=== PATIENT | male | born 1930 | race Caucasian/White ===

== ENCOUNTER 2016-11-22 09:41 | Observation (INO) | payer MEDICARE, OTHER ==
[~2016-11-22] VITALS: Ht 170.2 cm; Wt 65.0 kg
[2016-11-22] MEDS ORDERED: SOD CHLORIDE 0.9% 500 ML IV STA (09:48)
[2016-11-22] MEDS ORDERED: DILTIAZEM 25 MG INJ IV ONE ×2 (10:00→10:30)
[2016-11-22 10:15] LABS: ADD SCAN DIFF NO
[2016-11-22 10:17] LABS: BASOPHILS % 0.2 % (0.0-2.0); EOSINOPHILS % 0.4 % (0.0-7.0); HEMATOCRIT 39.5 % (42.0-52.0); HEMOGLOBIN 13.7 g/dl (14.0-18.0); LYMPHOCYTES # 1.2 10^3/ul (0.8-2.9); LYMPHOCYTES % 25.3 % (15.0-51.0); MEAN CORPUSCULAR HEMOGLOBIN 31.6 pg (29.0-33.0); MEAN CORPUSCULAR HGB CONC 34.7 g/dl (32.0-37.0); MONOCYTE # 0.5 10^3/ul (0.3-0.9); MONOCYTES % 10.1 % (0.0-11.0); NEUTROPHIL # 3.1 10^3/ul (1.6-7.5); NEUTROPHILS % 62.8 % (39.0-77.0); PLATELET COUNT 118 10^3/UL (140-415); RED BLOOD COUNT 4.34 10^6/ul (4.70-6.10); RED CELL DISTRIBUTION WIDTH 13.3 % (11.5-14.5); WHITE BLOOD COUNT 4.9 10^3/ul (4.8-10.8)
--- NOTE | 2016-11-22 10:18 | RADRPT ---
PROCEDURE: XR Chest. CLINICAL INDICATION: Chest pain. TECHNIQUE: Single frontal view. COMPARISON: None. FINDINGS: There is mild elevation of the left hemidiaphragm. The lungs are clear. The heart size is normal. There is no pleural effusion. There is no pneumothorax. IMPRESSION: 1. Mild elevation of the left hemidiaphragm. 2. Otherwise normal chest x-ray. RPTAT: QQ .Luca Blanc MD, MD Date Time Electronically viewed and signed by .Luca Blanc MD, on 11/22/2016 10:18 .R/
[2016-11-22 10:29] LABS: CREATININE 1.25 mg/dl (0.61-1.24); INR 1.22; PROTIME 15.5 Sec (12.2-14.2); PT RATIO 1.2
[2016-11-22 10:30] LABS: PARTIAL THROMBOPLASTIN TIME 32.4 Sec (25.0-35.0)
[2016-11-22 10:41] LABS: TROPONIN-I 0.02 ng/ml (0.00-0.12)
[2016-11-22] MEDS ORDERED: ACETAMINOPHEN 325 MG TAB PO PRN ×2 (11:30→12:00)
[2016-11-22] MEDS ORDERED: ONDANSETRON 4 MG INJ IV PRN ×2 (11:30→12:00)
--- NOTE | 2016-11-22 11:31 | ERA ---
ER Documentation Chief Complaint Date/Time DATE: 11/22/16 TIME: 11:29 Chief Complaint new onset AFib coming from pmd c/o fast heart beat HPI This is an 86-year-old male who presents the emergency room for evaluation of palpitations, generalized weakness, dizziness and mild shortness of breath. The patient states that this started approximately 48 hours ago. The patient was seen at the health clinic and was evaluated and referred to the emergency room for irregular heart rate. The patient denies having any previous history of an irregular heart rate in the past. He does state that he is on blood pressure medication, Ativan, and high cholesterol medication. ROS All systems reviewed and are negative except as per history of present illness. PMhx/Soc Hx Cardiac Disorders: Yes (htn, afib) Hx Psychiatric Problems: No Hx Alcohol Use: No Hx Substance Use: No Hx Tobacco Use: No Smoking Status: Never smoker Physical Exam Vitals Vital Signs Date Time Temp Pulse Resp B/P Pulse Ox O2 Delivery O2 Flow Rate FiO2 11/22/16 10:06 98.0 88 18 134/83 99 Room Air 11/22/16 10:06 Nasal Cannula 11/22/16 09:56 97.8 155 20 166/97 99 Physical Exam INITIAL VITAL SIGNS: Reviewed by me GENERAL: The patient is well developed and appropriate for usual state of health in no apparent distress HEENT: Pupils equal, round, and reactive to light. EOMI. There is no scleral icterus. NECK: C-spine is soft and supple, there is no meningismus. There is no cervical lymphadenopathy. LUNGS: Clear to auscultation bilaterally. There are no rales, wheezes or rhonchi. HEART: Irregularly irregular rhythm, no murmurs, clicks, rubs or gallops. ABDOMEN: Soft, non-tender, non-distended. There are bowel sounds in all four quadrants. No rebound or guarding. EXTREMITIES: There is no peripheral cyanosis or edema. No focal swelling or erythema. NEUROLOGICAL: The patient moves all four extremities with 5/5 strength. Cranial nerves II - XII are intact. Normal gait. Alert and oriented SKIN: There is no apparent rash or petechiae. HEME/LYMPHATIC: There is no evidence of excessive bruising or lymphedema. PSYCHIATRIC: The patient does not appear anxious or depressed. Result Diagram: 11/22/16 1002 11/22/16 1002 Results 24 hrs Laboratory Tests Test 11/22/16 10:02 White Blood Count 4.910^3/ul Red Blood Count 4.3410^6/ul Hemoglobin 13.7g/dl Hematocrit 39.5% Mean Corpuscular Volume 91.0fl Mean Corpuscular Hemoglobin 31.6pg Mean Corpuscular Hemoglobin Concent 34.7g/dl Red Cell Distribution Width 13.3% Platelet Count 08148^3/UL Mean Platelet Volume 10.0fl Neutrophils % 62.8% Lymphocytes % 25.3% Monocytes % 10.1% Eosinophils % 0.4% Basophils % 0.2% Nucleated Red Blood Cells % 0.0/100WBC Neutrophils # 3.110^3/ul Lymphocytes # 1.210^3/ul Monocytes # 0.510^3/ul Eosinophils # 0.010^3/ul Basophils # 0.010^3/ul Nucleated Red Blood Cells # 0.010^3/ul Prothrombin Time 15.5Sec Prothrombin Time Ratio 1.2 INR International Normalized Ratio 1.22 Activated Partial Thromboplast Time 32.4Sec Sodium Level 144mmol/L Potassium Level 4.0mmol/L Chloride Level 109mmol/L Carbon Dioxide Level 21mmol/L Anion Gap 18 Blood Urea Nitrogen 20mg/dl Creatinine 1.25mg/dl Glucose Level 131mg/dl Calcium Level 9.0mg/dl Troponin I 0.020ng/ml Current Medications Medications (Trade) Dose Ordered Sig/Eduardo Route PRN Reason Start Time Stop Time Status Last Admin Dose Admin Sodium Chloride (NS) 500 ml @ 500 mls/hr Q1H STAT IV 11/22/16 09:48 11/22/16 10:47 DC 11/22/16 09:53 Diltiazem HCl (Cardizem Iv) 10 mg ONCE ONCE IV 11/22/16 10:00 11/22/16 10:01 DC 11/22/16 09:55 Diltiazem HCl (Cardizem Iv) 10 mg ONCE ONCE IV 11/22/16 10:30 11/22/16 10:31 DC 11/22/16 10:05 Ondansetron HCl (Zofran Inj) 4 mg ER BRIDGE PRN IV NAUSEA AND/OR VOMITING 11/22/16 11:30 11/23/16 11:29 Acetaminophen (Tylenol Tab) 650 mg ER BRIDGE PRN PO MILD PAIN/FEVER 11/22/16 11:30 11/23/16 11:29 Procedures/MDM EKG: #1 Rate/Rhythm: Atrial fibrillation QRS, ST, T-waves: [No changes consistent w/ acute ischemia] Impression: Atrial fibrillation with rapid ventricular response EKG: #2 Rate/Rhythm: Atrial fibrillation QRS, ST, T-waves: [No changes consistent w/ acute ischemia] Impression: Atrial fibrillation with rapid ventricular response EKG: Rate/Rhythm: [Normal Sinus Rhythm] QRS, ST, T-waves: [No changes consistent w/ acute ischemia] Impression: [No evidence of ischemia or arrhythmia] Chest X-ray 1V Interpreted by me: Soft Tissue: No acute abnormalities Bones: No acute abnormalities Mediastinum/Cardiac Silhouette/Lungs: [No acute abnormalities] This 86-year-old male presents to the emergency room for evaluation of heart palpitations. When I evaluated this patient he had a heart rate of 136 and was in atrial fibrillation with rapid ventricular response which was confirmed by EKG. This patient does not have a previous history of atrial fibrillation. I was unsure whether this patient's symptoms for greater than 48 hours or not so I did not electrically cardiovert this patient. The patient was given 10 mg of Cardizem with mild relief of his tachydysrhythmia, however he continued to have a heart rate of 120 bpm. The patient was subsequently given another 10 mg of Cardizem with rate control. His blood pressure is 132/74 and heart rate is now 88 bpm. His palpitations and feeling of uncomfortableness has subsided. Given this patient's new onset of atrial fibrillation this patient will be placed in for admission at this time under the care of Dr. Walden who would like this patient observation on the telemetry floor. Cardiac Critical Care: Excluding all billable procedures Time: 37 minutes Treatments/Evaluations: Close monitoring for dangerous arrhythmia and cardiovascular collapse, while treating with advance cardiac medications and techniques. Departure Diagnosis: Primary Impression: Atrial fibrillation with RVR Additional Impressions: Normocytic anemia Thrombocytopenia Renal insufficiency Condition: Stable ADONISMAKENZIE AMORKOBI Nov 22, 2016 11:31
[2016-11-22] MEDS ORDERED: BISACODYL 10 MG SUPP PR PRN (12:00)
[2016-11-22] MEDS ORDERED: DOCUSATE SODIUM 100 MG CAP PO PRN (12:00)
[2016-11-22] MEDS ORDERED: morphine 2 MG INJ IV PRN (12:00)
[2016-11-22] MEDS ORDERED: HYDROCODONE/APAP (5/325) TAB PO PRN ×2 (12:00)
[2016-11-22] MEDS ORDERED: NACL 0.9% 3 ML SYG IV SCH (12:00)
[2016-11-22] MEDS ORDERED: LORAZEPAM 2 MG INJ IV PRN (12:00)
[2016-11-22] MEDS ORDERED: MAGNESIUM HYDROXIDE 30ML CUP PO PRN (12:00)
[2016-11-22] MEDS ORDERED: FINA5TAB4 PO (12:08)
[2016-11-22] MEDS ORDERED: CRES10 PO (12:09)
[2016-11-22] MEDS ORDERED: CLON-379 PO (12:14)
[2016-11-22] MEDS ORDERED: DEXL60CA2 PO (12:15)
[2016-11-22] MEDS ORDERED: LORA0.5T PO (12:17)
[2016-11-22] MEDS ORDERED: TRAZ50TA18 PO (12:17)
[2016-11-22] MEDS ORDERED: KENC1 TOP (12:18)
[2016-11-22] MEDS ORDERED: MECL-77 PO (12:19)
--- NOTE | 2016-11-22 13:10 | RADRPT ---
Echocardiogram Report Patient Name: JAZMINE ESPINOZA Gender: Male Date: 1930 Study Date: 22-Nov-2016 Gift Consultant: Samson Castillo [facility] Location: [facility] Ref. Physician: THIERNO MCGOWAN Quality: Good Procedures: Transthoracic echocardiogram with complete 2D, M-Mode, and doppler examination. Indications: Atrial Fibrillation. 2D/M Mode Doppler Measurement Value Normal Ranges Measurement Value Normal Ranges LVIDd 2D 4.3 3.5 - 5.6 cm AV Peak Solo 1.3 m/sec LVIDs 2D 2.9 2.1 - 4.1 cm AV Peak PG 7.0 mmHg FS 2D 34.0 % AI Peak PG 59.0 mmHg LVPWd 2D 1.2 0.6 - 1.1 cm AI Peak Solo 3.8 m/sec IVSd 2D 1.2 0.6 - 1.1 cm AI PHT 935.0 msec IVS/LVPW 2D 1.0 LVOT Peak Solo 1.0 m/sec AoR Diam 2D 3.3 2.0 - 3.7 cm LVOT Peak PG 4.0 mmHg LA/Ao 2D 1 0 - 1 MV E Peak Solo 0.6 m/sec EDV 2D 82.3 cm3 MV A Peak Solo 0.9 m/sec ESV 2D 23.6 cm3 MV E/A 0.7 LA Dimen 2D 2.7 2.3 - 4.0 cm MV Decel Time 176 msec MV E/A 0.7 Findings Left Ventricle: Normal left ventricular systolic function. Normal left ventricular cavity size. Mild concentric left ventricular hypertrophy. Ejection fraction is visually estimated at 60 %. Tissue Doppler/Mitral Doppler indices are consistent with impaired relaxation (Stage I diastolic dysfunction). Right Ventricle: Normal right ventricular size. Normal right ventricular systolic function. Left Atrium: The left atrium is normal in size. Right Atrium: The right atrium is normal in size. Mitral Valve: Mitral valve leaflets appear mildly thickened. Mild mitral annular calcification. Mild mitral valve regurgitation. Aortic Valve: No hemodynamically significant aortic stenosis by doppler. Aortic cusps appear mildly calcified. Mild aortic valve regurgitation. Tricuspid Valve: Normal appearance and function of the tricuspid valve with trace physiologic regurgitation. Pulmonic Valve: Pulmonic valve not well visualized. Pericardium: Normal pericardium with no significant pericardial effusion. Aorta: Normal aortic root. IVC: Normal size and normal respiratory collapse consistent with normal right atrial pressure. Conclusions 1.Normal left ventricular systolic function. Normal left ventricular cavity size. Mild concentric left ventricular hypertrophy. Ejection fraction is visually estimated at 60 %. Tissue Doppler/Mitral Doppler indices are consistent with impaired relaxation (Stage I diastolic dysfunction). 2.Normal right ventricular size. Normal right ventricular systolic function. 3.The left atrium is normal in size. 4.The right atrium is normal in size. 5.Mild mitral valve regurgitation. 6.No hemodynamically significant aortic stenosis by doppler. Mild aortic valve regurgitation. 7.Normal pericardium with no significant pericardial effusion. Electronically Signed By: Thierno Mcgowan 22-Nov-2016 13:09:42 -0700 Patient Name: JAZMINE ESPINOZA Study Date: 22-Nov-2016 [id number]
[2016-11-22] MEDS: SOD CHLORIDE 0.9% 1,000 ML IV SCH ×2 (13:57→21:39)
[2016-11-22 13:58] LABS: THYROID STIMULATING HORMONE 1.14 MIU/L (0.465-4.680)
[2016-11-22] MEDS ORDERED: HEPARIN 5,000 UNIT/0.5 ML SYG SC SCH (14:00)
--- NOTE | 2016-11-22 15:29 | CONS ---
Date/Time of Note Date/Time of Note DATE: 11/22/16 TIME: 15:23 Assessment/Plan Assessment/Plan Additional Assessment/Plan Atrial fibrillation rapid ventricular rates, currently sinus Preserved ejection fraction Mitral regurgitation Hypertension Abnormal renal function -Patient with evidence of paroxysmal atrial fibrillation and converted to sinus rhythm with IV Cardizem. Would start p.o. Cardizem. Given the increased risk of thromboembolic events in the setting of atrial fibrillation and patient risk factors, would recommend initiation of anticoagulation. The benefits and risks were discussed with the patient in detail including the risk of life- threatening bleeding. He understands the risks and agrees to proceed. Patient has been started on Eliquis. Given patient with hypertension and mitral regurgitation, patient would benefit from afterload reduction with ideally VERONIKA inhibitor. Would hold off on initiation of VERONIKA inhibitor at the current time given abnormal creatinine. Consultation Date/Type/Reason Admit Date/Time Type of Consultation: cv Reason for Consultation Atrial fibrillation Hx of Present Illness This is an 86-year-old male with past medical history of hypertension, dyslipidemia who presents with fatigue and intermittent palpitations. Patient has been having symptoms of fatigue and palpitations off and on over the past few weeks. He denies any chest pain, dizziness, lightheadedness. He went to his primary care's office and was found to be in atrial fibrillation with rapid ventricular rates and sent to the emergency room. Patient was given IV Cardizem and converted to sinus rhythm. He is currently feeling better. He denies exertional shortness of breath as well. He denies any fevers or chills. 12 point review of systems was performed with all pertinent positives and negatives mentioned above and all else is negative Past Medical History Medical History: high cholesterol, hypertension Family History Significant Family History: no pertinent family hx Social History Alcohol Use: rarely Smoking Status: Never smoker Drug Use: none Exam/Review of Systems Vital Signs Vitals Vital Signs Date Time Temp Pulse Resp B/P Pulse Ox O2 Delivery O2 Flow Rate FiO2 11/22/16 13:43 84 18 157/97 99 Room Air 11/22/16 10:06 98.0 Exam No apparent distress Constitutional: alert, oriented Head: normocephalic Neck: supple Respiratory: clear to auscultation, normal air movement Cardiovascular: other (S1-S2 heard), regular rate and rhythm, systolic murmur Gastrointestinal: bowel sounds, non-tender, other (No guarding), soft Extremities: other (No edema or cyanosis) Results Result Diagram: 11/22/16 1002 11/22/16 1002 Results 24 hrs Laboratory Tests Test 11/22/16 10:02 11/22/16 12:23 White Blood Count 4.9 Red Blood Count 4.34 L Hemoglobin 13.7 L Hematocrit 39.5 L Mean Corpuscular Volume 91.0 Mean Corpuscular Hemoglobin 31.6 Mean Corpuscular Hemoglobin Concent 34.7 Red Cell Distribution Width 13.3 Platelet Count 118 L Mean Platelet Volume 10.0 Neutrophils % 62.8 Lymphocytes % 25.3 Monocytes % 10.1 Eosinophils % 0.4 Basophils % 0.2 Nucleated Red Blood Cells % 0.0 Neutrophils # 3.1 Lymphocytes # 1.2 Monocytes # 0.5 Eosinophils # 0.0 Basophils # 0.0 Nucleated Red Blood Cells # 0.0 Prothrombin Time 15.5 H Prothrombin Time Ratio 1.2 INR International Normalized Ratio 1.22 Activated Partial Thromboplast Time 32.4 Sodium Level 144 Potassium Level 4.0 Chloride Level 109 Carbon Dioxide Level 21 Anion Gap 18 H Blood Urea Nitrogen 20 Creatinine 1.25 H Glucose Level 131 Calcium Level 9.0 Troponin I 0.020 Magnesium Level 2.0 Thyroid Stimulating Hormone (TSH) 1.140 Free Thyroxine 0.78 L Medications Medications Current Medications Sodium Chloride (NS) 1,000 ml @ 100 mls/hr Q10H IV Last administered on t 13:57; Admin Dose 100 MLS/HR; Start 11/22/16 at 11:39 Lorazepam (Ativan) 0.5 mg Q6H PRN IV ANXIETY; Start 11/22/16 at 12:00 Ondansetron HCl (Zofran Inj) 4 mg Q6H PRN IV NAUSEA AND/OR VOMITING; Start at 12:00 Aspirin (Aspirin) 81 mg DAILY PO ; Start 11/23/16 at 09:00 Acetaminophen (Tylenol Tab) 650 mg Q6H PRN PO PAIN LEVEL 1-3 OR FEVER; Start at 12:00 Acetaminophen/ Hydrocodone Bitart (Bradley (5/325)) 1 tab Q6H PRN PO PAIN LEVEL 4 -6; Start 11/22/16 at 12:00 Acetaminophen/ Hydrocodone Bitart (Bradley (5/325)) 2 tab Q6H PRN PO PAIN LEVEL 7 -10; Start 11/22/16 at 12:00 Morphine Sulfate (morphine) 2 mg Q4H PRN IV PAIN LEVEL 7-10; Start 11/22/16 at 12:00 Docusate Sodium (Colace) 100 mg Q12H PRN PO CONSTIPATION; Start 11/22/16 at 12: 00 Magnesium Hydroxide (Milk Of Mag) 30 ml DAILY PRN PO CONSTIPATION; Start at 12:00 Bisacodyl (Dulcolax Supp) 10 mg DAILY PRN [place] CONSTIPATION; Start 11/22/16 at 12 :00 Pantoprazole (Protonix Tab) 40 mg DAILY@06 PO ; Start 11/23/16 at 06:00 Heparin Sodium (Porcine) (Heparin (5000 Units/0.5 ml)) 5,000 unit Q8 SC Last administered on 11/22/16t 13:54; Admin Dose 5,000 UNIT; Start 11/22/16 at 14:00 Procedures Procedures Initial ECG with atrial fibrillation with rapid ventricular rates, no significant ischemic STT wave abnormalities Repeat ECG with sinus rhythm, normal QRS duration, no significant ischemic STT wave abnormalities Thierno Mcgowan DO Nov 22, 2016 15:29
[2016-11-22 16:06] LABS: CREATINE KINASE 24 IU/L (23-200)
[2016-11-22 16:32] LABS: CK-MB < 0.22 ng/ml (0.0-2.4); TROPONIN-I < 0.012 ng/ml (0.00-0.12)
[2016-11-22] MEDS: DILTIAZEM (CD) 180 MG CAP PO SCH (16:42)
[2016-11-22] MEDS ORDERED: MECLIZINE 25 MG TAB PO PRN (18:00)
[2016-11-22] MEDS ORDERED: LORAZEPAM 0.5 MG TAB PO PRN (18:00)
--- NOTE | 2016-11-22 18:40 | HP ---
DATE OF ADMISSION: 11/22/2016 ADMITTING PHYSICIAN: Rj Walden MD CONSULTING ON THIS ADMISSION: Thierno Mcgowan MD from cardiology. CHIEF COMPLAINT ON ADMISSION: Palpitations and generalized weakness. HISTORY OF PRESENT ILLNESS: This is an 86-year-old male with history of hypertension, hyperlipidemi a and benign prostatic hypertrophy, recently diagnosed also with possible vertigo has been on mecliz ine, who presented to the emergency department with complaint of palpitations, generalized weakness and dizziness along with some mild shortness of breath. The patient reports that he was having thos e symptoms for the past 48 hours. He actually went to urgent care [facility] where he was found to be in atrial fibrillation with no previous history. Therefore, he was redirected to the emergency depart ment. In the emergency department, he was found to be in atrial fibrillation with heart rate in the 150s to 160s. After 2 doses of Cardizem 10 mg IV, his heart rate became controlled in 80s. He act ually converted to sinus rhythm. His symptoms resolved along with conversion to sinus rhythm. He i s feeling well currently. No shortness of breath. He denies any chest pains, nausea or vomiting. He denies any dizziness. He has been admitted to telemetry observation overnight. He has been seen by cardiology, started on Cardizem-CD, but also Eliquis for stroke prophylaxis. ALLERGIES: NO KNOWN ALLERGIES. PAST MEDICAL HISTORY: 1. Hypertension. Of note, the patient has been on clonidine as an outpatient for blood pressure co ntrol. 2. Hyperlipidemia. 3. Benign prostatic hypertrophy. 4. Possibly benign positional vertigo. PAST SURGICAL HISTORY: None. SOCIAL HISTORY: The patient denies any history of alcohol or tobacco use. He lives with his son an d may be exposed to secondhand smoking as the son is a smoker. OUTPATIENT MEDICATIONS: 1. Clonidine 0.1 mg p.o. daily, take 3 tablets by mouth daily. 2. Crestor 10 mg p.o. at bedtime. 3. Lorazepam 0.25 mg p.o. at bedtime p.r.n. insomnia. 4. Trazodone 25 mg p.o. daily. 5. Dexilant 60 mg p.o. daily. 6. Meclizine 25 mg p.o. daily p.r.n. dizziness. 7. Finasteride 5 mg p.o. daily. PHYSICAL EXAMINATION: VITAL SIGNS: Temperature is 98.0, heart rate of 84, sinus rhythm now, respiratory rate of 18, blood pressure 157/97. The patient is saturating 99% on room air. He is lying in a stretcher, but other parekh stable. GENERAL: He is alert and oriented x4. He is in no acute distress. No chest pain currently, he is in sinus rhythm. HEENT: Pupils are equally round and reactive to light. Extraocular muscles are intact. Anicteric sclerae. NECK: No JVD, no thyromegaly. HEART: Regular rate and rhythm. No murmur, rubs, or gallops. LUNGS: Clear to auscultation bilaterally. ABDOMEN: Soft, nontender, nondistended. Bowel sounds are present. EXTREMITIES: No edema, clubbing or cyanosis currently. NEUROLOGIC: Grossly intact. LABORATORY DATA: White blood cell count is 4.9, hemoglobin 13.7, hematocrit 39.5, platelet count of 118. Chemistry with a sodium of 144, potassium 4.0, chloride 109, bicarbonate 21, BUN 20, creatini ne 1.25, glucose 131, calcium 9.0, magnesium 2.0, troponin 0.020, TSH 1.14, free T4 0.78. Second se t of troponin negative with troponin less than 0.012. INR 1.22, PT 15.5, PTT 32.4. EKG currently is in sinus rhythm, no acute ST or T-wave abnormalities. EKG on arrival is reviewed. The patient was in atrial fibrillation at that time. RADIOLOGICAL DATA: Chest x-ray shows no pleural effusion, no pneumothorax, mild elevation of the le ft hemidiaphragm, otherwise clear. ASSESSMENT AND PLAN: This is an 86-year-old male with: 1. Episode of atrial fibrillation with rapid ventricular rate, did convert to sinus rhythm after Ca rdizem. He most likely has been in it for the past couple of days based on these symptoms. I appre ciate recommendations from Dr. Mcgowan from cardiology. The patient is started on Cardizem-CD 180 mg p.o. daily. Also has been started on Eliquis for stroke prophylaxis. He will be monitored overnig ht with discharge planning for the morning. His echocardiogram showed a preserved ejection fraction . 2. Hypertension. He is now on Cardizem-CD. I did add hydralazine p.r.n. IV in the morning if his creatinine seems to have recovered back to normal. We will start him on VERONIKA inhibitors or ARB as th e patient is found to have mitral regurgitation on echocardiogram. 3. Acute kidney injury versus chronic kidney disease. Will repeat his BMP in the morning in order to follow up his renal function. For now, he has good urine output. 4. Benign prostatic hypertrophy. Resume finasteride. 5. Gastroesophageal reflux disease. Continue proton pump inhibitors. 6. Hyperlipidemia. We will check a fasting lipid panel in the morning and then continue his Cresto r at the time of discharge. 7. Mild mitral valve regurgitation on echocardiogram. Again appreciate recommendations from cardio logy regarding antihypertensive. The patient could use an VERONIKA inhibitor depending on his renal func tion. 8. Prophylaxis. The patient already on Eliquis at this time and Protonix for DVT prophylaxis. DISPOSITION: Admit to telemetry observation overnight. Dictated By: RJ CLOUD/JOSE Conf#: [id number] DID#: [id number]
[2016-11-22 20:45] VITALS: BP 150/84; PULSE 77; RESP 18; Ht 170.2 cm; Wt 65.0 kg
[2016-11-22] MEDS: TRIAMCINOLONE ACET 0.1% 15 GM CR TOP SCH (21:00)
[2016-11-22] MEDS: ATORVASTATIN 20 MG TAB PO SCH (21:00)
[2016-11-22 21:11] VITALS: PULSE 93
[2016-11-22] MEDS: APIXABAN 5 MG TABLET PO SCH (22:48)
[2016-11-22 23:08] LABS: CREATINE KINASE 54 IU/L (23-200)
[2016-11-22 23:23] LABS: CK-MB 0.25 ng/ml (0.0-2.4); TROPONIN-I < 0.012 ng/ml (0.00-0.12)
[2016-11-22 23:56] VITALS: BP 158/85; RESP 16
[2016-11-23] VITALS (18 sets, daily range): BP systolic 134–200; BP diastolic 65–94; PULSE 67–154; RESP 16–20
[2016-11-23] MEDS: PANTOPRAZOLE (EC) 40 MG TAB PO SCH (06:02)
[2016-11-23 06:13] LABS: ADD SCAN DIFF NO
[2016-11-23 06:53] LABS: ALBUMIN 4.2 g/dl (3.3-4.9); POTASSIUM 3.8 mmol/L (3.5-5.1)
[2016-11-23 06:56] LABS: ALBUMIN/GLOBULIN RATIO 1.31; BASOPHILS % 0.3 % (0.0-2.0); BILIRUBIN,INDIRECT 0.3 mg/dl (0-1.1); BILIRUBIN,TOTAL 0.3 mg/dl (0.2-1.3); CALCIUM 9.1 mg/dl (8.4-10.2); CREATININE 1.28 mg/dl (0.61-1.24); EOSINOPHILS % 0.3 % (0.0-7.0); HEMATOCRIT 42.1 % (42.0-52.0); HEMOGLOBIN 14.5 g/dl (14.0-18.0); LYMPHOCYTES # 1.5 10^3/ul (0.8-2.9); LYMPHOCYTES % 24.8 % (15.0-51.0); MEAN CORPUSCULAR HEMOGLOBIN 31.4 pg (29.0-33.0); MEAN CORPUSCULAR HGB CONC 34.4 g/dl (32.0-37.0); MEAN CORPUSCULAR VOLUME 91.1 fl (82.0-101.0); MEAN PLATELET VOLUME 10.5 fl (7.4-10.4); MONOCYTE # 0.7 10^3/ul (0.3-0.9); MONOCYTES % 11.3 % (0.0-11.0); NEUTROPHIL # 3.8 10^3/ul (1.6-7.5); NEUTROPHILS % 62.3 % (39.0-77.0); PLATELET COUNT 131 10^3/UL (140-415); RED BLOOD COUNT 4.62 10^6/ul (4.70-6.10); RED CELL DISTRIBUTION WIDTH 13.2 % (11.5-14.5); TOTAL PROTEIN 7.4 g/dl (6.1-8.1); WHITE BLOOD COUNT 6.1 10^3/ul (4.8-10.8)
[2016-11-23 06:57] LABS: CHOL/HDL RATIO 3.5 RATIO; MAGNESIUM 1.9 mg/dl (1.7-2.5)
[2016-11-23] MEDS: SOD CHLORIDE 0.9% 1,000 ML IV SCH (08:03)
[2016-11-23] MEDS: APIXABAN 5 MG TABLET PO SCH ×2 (08:03→20:41)
[2016-11-23] MEDS: TRIAMCINOLONE ACET 0.1% 15 GM CR TOP SCH ×2 (08:03→20:40)
[2016-11-23] MEDS: FINASTERIDE 5 MG TAB PO SCH (08:05)
[2016-11-23] MEDS: DILTIAZEM (CD) 180 MG CAP PO SCH (08:05)
[2016-11-23] MEDS ORDERED: ASPIRIN 81 MG TAB PO SCH (09:00)
[2016-11-23] MEDS ORDERED: AMLODIPINE 5 MG TAB PO SCH ×2 (09:30→21:00)
--- NOTE | 2016-11-23 10:18 | RADRPT ---
PROCEDURE: US Renal CLINICAL INDICATION: Acute renal insufficiency. TECHNIQUE: Multiple sonographic images of the kidneys and bladder were obtained. Evaluation of th e kidneys and bladder was performed as well with em scale and color and Doppler evaluation using a curved array transducer. The images were reviewed on a high-resolution PACS workstation. COMPARISON: No prior studies are available for comparison. FINDINGS: The right kidney measures 10.7 cm. The left kidney measures 9.1 cm. There is normal echogenicity within the parenchyma of the kidneys bilaterally. There is bilateral hydronephrosis present. There is echogenic, shadowing calculus in the lower pole of the left kidney.. No perinephric fluid collection is seen. Urinary bladder is unremarkable except the patient did not void completely. IMPRESSION: 1. Bilateral hydronephrosis. 2. Echogenic shadowing calculus in the lower pole of the left kidney. RPTAT: [facility] Physician Maurice Date Time Electronically viewed and signed by Physician Maurice on 11/23/2016 10:17 /
[2016-11-23] MEDS: hydrALAzine 20 MG INJ IV PRN (13:34)
--- NOTE | 2016-11-23 14:11 | PN ---
Date/Time of Note Date/Time of Note DATE: 11/23/16 TIME: 13:30 Assessment/Plan VTE Prophylaxis VTE Prophylaxis Intervention: other (eliquis ) Lines/Catheters IV [facility]ter Type [facility]from [facility] Saline Lock Urinary Cath still in place: No Assessment/Plan Assessment/Plan 86-year-old male with: 1. Episode of atrial fibrillation with rapid ventricular rate, remains in SR today On Cardizem Also on Eliquis at this time Follow up with Cardiology in 1 to 2 weeks His echocardiogram showed a preserved ejection fraction and mild MR 2. Severe Hypertension and has been on Clonidine but claims he only has been taking it prn elevated BP. However off of clonidine, he is having rebound HTN also diaphoresis and tremors, ,... Cont Cardizem CD, Norvasc 5 mg po qdaily Continue Clonidine bid and continue clonidine prn. 3. Acute kidney injury versus chronic kidney disease. Likely CKD and hydronephrosis seen on Renal US likely chronic, per radiologist mild left Hydronephrosis and right is mild to moderate, patient has no pain and does have good UOP, hx of nephrolithiasis in past Will repeat his BMP in the morning in order to follow up his renal function. Monitor uop and follow up with Urology as outpatient. 4. Benign prostatic hypertrophy. On finasteride. 5. Gastroesophageal reflux disease. On proton pump inhibitors. 6. Hyperlipidemia. Continue statins 7. Mild mitral valve regurgitation on echocardiogram. Prophylaxis. The patient already on Eliquis at this time and Protonix for DVT prophylaxis. DISPOSITION: Keep on Tele obs, BP control and monitoring. Subjective 24 Hr Interval Summary Free Text/Dictation Patient complaining of diaphoresis and tremors, ? clonidine withdrawal as patient also with SBP in 200's No Chest pain, nausea or vomiting Renal function unchanged with good UOP Renal US with likely chronic bilateral hydronephrosis based on hx given by patient Exam/Review of Systems Vital Signs Vitals Vital Signs Date Time Temp Pulse Resp B/P Pulse Ox O2 Delivery O2 Flow Rate FiO2 11/23/16 12:31 80 11/23/16 11:48 97.3 19 180/86 95 11/23/16 07:49 Room Air Intake and Output 11/22/16 11/22/16 11/23/16 15:00 23:00 07:00 Intake Total 1000 ml Balance 1000 ml Exam Constitutional: alert, oriented, other, well developed Respiratory: clear to auscultation, normal air movement Cardiovascular: nl pulses, regular rate and rhythm Results Result Diagram: 11/23/16 0545 11/23/16 0545 Results 24 hrs Laboratory Tests Test 11/22/16 15:46 11/22/16 22:26 11/23/16 05:45 Creatine Kinase 24 54 Creatine Kinase Index 0.9 0.5 Creatinine Kinase MB (Mass) < 0.22 0.25 Troponin I < 0.012 < 0.012 White Blood Count 6.1 # Red Blood Count 4.62 L Hemoglobin 14.5 Hematocrit 42.1 Mean Corpuscular Volume 91.1 Mean Corpuscular Hemoglobin 31.4 Mean Corpuscular Hemoglobin Concent 34.4 Red Cell Distribution Width 13.2 Platelet Count 131 L Mean Platelet Volume 10.5 H Neutrophils % 62.3 Lymphocytes % 24.8 Monocytes % 11.3 H Eosinophils % 0.3 Basophils % 0.3 Nucleated Red Blood Cells % 0.0 Neutrophils # 3.8 Lymphocytes # 1.5 Monocytes # 0.7 Eosinophils # 0.0 Basophils # 0.0 Nucleated Red Blood Cells # 0.0 Sodium Level 145 H Potassium Level 3.8 Chloride Level 106 Carbon Dioxide Level 24 Anion Gap 19 H Blood Urea Nitrogen 20 Creatinine 1.28 H Glucose Level 110 Calcium Level 9.1 Magnesium Level 1.9 Total Bilirubin 0.3 Direct Bilirubin 0.00 Indirect Bilirubin 0.3 Aspartate Amino Transf (AST/SGOT) 28 Alanine Aminotransferase (ALT/SGPT) 31 Alkaline Phosphatase 152 H Total Protein 7.4 Albumin 4.2 Globulin 3.20 Albumin/Globulin Ratio 1.31 Triglycerides Level 141 Cholesterol Level 111 LDL Cholesterol, Calculated 52 HDL Cholesterol 31 Cholesterol/HDL Ratio 3.5 Medications Medications Current Medications Sodium Chloride (NS) 1,000 ml @ 100 mls/hr Q10H IV Last administered on t 08:03; Admin Dose 100 MLS/HR; Start 11/22/16 at 11:39 Lorazepam (Ativan) 0.5 mg Q6H PRN IV ANXIETY; Start 11/22/16 at 12:00 Ondansetron HCl (Zofran Inj) 4 mg Q6H PRN IV NAUSEA AND/OR VOMITING; Start at 12:00 Acetaminophen (Tylenol Tab) 650 mg Q6H PRN PO PAIN LEVEL 1-3 OR FEVER; Start at 12:00 Acetaminophen/ Hydrocodone Bitart ([place] (5/325)) 1 tab Q6H PRN PO PAIN LEVEL 4 -6; Start 11/22/16 at 12:00 Acetaminophen/ Hydrocodone Bitart ([place] (5/325)) 2 tab Q6H PRN PO PAIN LEVEL 7 -10; Start 11/22/16 at 12:00 Morphine Sulfate (morphine) 2 mg Q4H PRN IV PAIN LEVEL 7-10; Start 11/22/16 at 12:00 Docusate Sodium (Colace) 100 mg Q12H PRN PO CONSTIPATION; Start 11/22/16 at 12: 00 Magnesium Hydroxide (Milk Of Mag) 30 ml DAILY PRN PO CONSTIPATION; Start at 12:00 Bisacodyl (Dulcolax Supp) 10 mg DAILY PRN [place] CONSTIPATION; Start 11/22/16 at 12 :00 Pantoprazole (Protonix Tab) 40 mg DAILY@06 PO Last administered on 11/23/16 06 :02; Admin Dose 40 MG; Start 11/23/16 at 06:00 Apixaban (Eliquis) 5 mg BID PO Last administered on 11/23/16 08:03; Admin Dose 5 MG; Start 11/22/16 at 21:00 Diltiazem HCl (Cardizem Cd) 180 mg DAILY PO Last administered on 11/23/16 08: 05; Admin Dose 180 MG; Start 11/22/16 at 15:30 Atorvastatin Calcium (Lipitor) 20 mg HS PO Last administered on 11/22/16 21:00 ; Admin Dose 20 MG; Start 11/22/16 at 21:00 Finasteride (Proscar) 5 mg DAILY PO Last administered on 11/23/16 08:05; Admin Dose 5 MG; Start 11/23/16 at 09:00 Lorazepam (Ativan) 0.25 mg HS PRN PO SLEEP; Start 11/22/16 at 18:00 Meclizine HCl (Antivert) 25 mg DAILY PRN PO DIZZINESS; Start 11/22/16 at 18:00 Triamcinolone Acetonide (Kenalog 0.1% Cr) 1 applic BID TOP Last administered on 11/23/16 08:03; Admin Dose 1 APPLIC; Start 11/22/16 at 21:00 Hydralazine HCl (Apresoline) 10 mg Q8H PRN IV ELEVATED BLOOD PRESSURE; Start at 18:00 Amlodipine Besylate (Norvasc) 5 mg DAILY PO Last administered on 11/23/16t 10: 22; Admin Dose 5 MG; Start 11/23/16 at 09:30 RJ WILLAMS Nov 23, 2016 13:42
--- NOTE | 2016-11-23 15:08 | CONS ---
Date/Time of Note Date/Time of Note DATE: 11/23/16 TIME: 15:05 Assessment/Plan Assessment/Plan Additional Assessment/Plan Atrial fibrillation rapid ventricular rates, currently sinus Preserved ejection fraction Mitral regurgitation Hypertension Abnormal renal function Possible clonidine withdrawal -Patient remains in sinus rhythm. Having "shaking" symptoms and tremors. As per family, this does happen to the patient and usually takes an extra dose of his medication, which they think is clonidine. Possible symptoms of clonidine withdrawal. Would restart clonidine, continue Cardizem to maintain in sinus rhythm. Continue anticoagulation if no contraindication. Consultation Date/Type/Reason Admit Date/Time Nov 22, 2016 at 11:28 Initial Consult Date Type of Consultation: cv 24 HR Interval Summary Free Text/Dictation Patient denies chest pain, shortness of breath or palpitations. Patient today with symptoms of "shaking" and altered mental status. As per family at bedside , this happens the patient and usually takes an extra dose of medication which usually resolves. They think medication is clonidine. Exam/Review of Systems Vital Signs Vitals Vital Signs Date Time Temp Pulse Resp B/P Pulse Ox O2 Delivery O2 Flow Rate FiO2 11/23/16 13:51 105 20 198/90 97 Room Air 11/23/16 11:48 97.3 Intake and Output 11/22/16 11/22/16 11/23/16 15:00 23:00 07:00 Intake Total 1000 ml Balance 1000 ml Exam Patient with occasional bilateral upper extremity shaking movements. Follows commands Constitutional: alert Head: normocephalic Respiratory: other (Coarse breath sounds bilaterally, no wheezing) Cardiovascular: other (S1-S2 heard), regular rate and rhythm Gastrointestinal: bowel sounds, non-tender, other (No guarding), soft Extremities: other (No edema or cyanosis) Results Result Diagram: 11/23/16 0545 11/23/16 0545 Results 24 hrs Laboratory Tests Test 11/22/16 15:46 11/22/16 22:26 11/23/16 05:45 Creatine Kinase 24 54 Creatine Kinase Index 0.9 0.5 Creatinine Kinase MB (Mass) < 0.22 0.25 Troponin I < 0.012 < 0.012 White Blood Count 6.1 # Red Blood Count 4.62 L Hemoglobin 14.5 Hematocrit 42.1 Mean Corpuscular Volume 91.1 Mean Corpuscular Hemoglobin 31.4 Mean Corpuscular Hemoglobin Concent 34.4 Red Cell Distribution Width 13.2 Platelet Count 131 L Mean Platelet Volume 10.5 H Neutrophils % 62.3 Lymphocytes % 24.8 Monocytes % 11.3 H Eosinophils % 0.3 Basophils % 0.3 Nucleated Red Blood Cells % 0.0 Neutrophils # 3.8 Lymphocytes # 1.5 Monocytes # 0.7 Eosinophils # 0.0 Basophils # 0.0 Nucleated Red Blood Cells # 0.0 Sodium Level 145 H Potassium Level 3.8 Chloride Level 106 Carbon Dioxide Level 24 Anion Gap 19 H Blood Urea Nitrogen 20 Creatinine 1.28 H Glucose Level 110 Calcium Level 9.1 Magnesium Level 1.9 Total Bilirubin 0.3 Direct Bilirubin 0.00 Indirect Bilirubin 0.3 Aspartate Amino Transf (AST/SGOT) 28 Alanine Aminotransferase (ALT/SGPT) 31 Alkaline Phosphatase 152 H Total Protein 7.4 Albumin 4.2 Globulin 3.20 Albumin/Globulin Ratio 1.31 Triglycerides Level 141 Cholesterol Level 111 LDL Cholesterol, Calculated 52 HDL Cholesterol 31 Cholesterol/HDL Ratio 3.5 Medications Medications Current Medications Lorazepam (Ativan) 0.5 mg Q6H PRN IV ANXIETY; Start 11/22/16 at 12:00 Ondansetron HCl (Zofran Inj) 4 mg Q6H PRN IV NAUSEA AND/OR VOMITING; Start at 12:00 Acetaminophen (Tylenol Tab) 650 mg Q6H PRN PO PAIN LEVEL 1-3 OR FEVER; Start at 12:00 Acetaminophen/ Hydrocodone Bitart ([place] (5/325)) 1 tab Q6H PRN PO PAIN LEVEL 4 -6; Start 11/22/16 at 12:00 Acetaminophen/ Hydrocodone Bitart ([place] (5/325)) 2 tab Q6H PRN PO PAIN LEVEL 7 -10; Start 11/22/16 at 12:00 Morphine Sulfate (morphine) 2 mg Q4H PRN IV PAIN LEVEL 7-10; Start 11/22/16 at 12:00 Docusate Sodium (Colace) 100 mg Q12H PRN PO CONSTIPATION; Start 11/22/16 at 12: 00 Magnesium Hydroxide (Milk Of Mag) 30 ml DAILY PRN PO CONSTIPATION; Start at 12:00 Bisacodyl (Dulcolax Supp) 10 mg DAILY PRN [place] CONSTIPATION; Start 11/22/16 at 12 :00 Pantoprazole (Protonix Tab) 40 mg DAILY@06 PO Last administered on 11/23/16 06 :02; Admin Dose 40 MG; Start 11/23/16 at 06:00 Apixaban (Eliquis) 5 mg BID PO Last administered on 11/23/16 08:03; Admin Dose 5 MG; Start 11/22/16 at 21:00 Diltiazem HCl (Cardizem Cd) 180 mg DAILY PO Last administered on 11/23/16 08: 05; Admin Dose 180 MG; Start 11/22/16 at 15:30 Atorvastatin Calcium (Lipitor) 20 mg HS PO Last administered on 11/22/16 21:00 ; Admin Dose 20 MG; Start 11/22/16 at 21:00 Finasteride (Proscar) 5 mg DAILY PO Last administered on 11/23/16 08:05; Admin Dose 5 MG; Start 11/23/16 at 09:00 Lorazepam (Ativan) 0.25 mg HS PRN PO SLEEP; Start 11/22/16 at 18:00 Meclizine HCl (Antivert) 25 mg DAILY PRN PO DIZZINESS; Start 11/22/16 at 18:00 Triamcinolone Acetonide (Kenalog 0.1% Cr) 1 applic BID TOP Last administered on 11/23/16 08:03; Admin Dose 1 APPLIC; Start 11/22/16 at 21:00 Hydralazine HCl (Apresoline) 10 mg Q8H PRN IV ELEVATED BLOOD PRESSURE Last administered on 11/23/16 13:34; Admin Dose 10 MG; Start 11/22/16 at 18:00 Clonidine (Catapres) 0.1 mg Q8H PRN PO ELEVATED BLOOD PRESSURE Last administered on 11/23/16 13:51; Admin Dose 0.1 MG; Start 11/23/16 at 14:00 Amlodipine Besylate (Norvasc) 5 mg DAILY PO ; Start 11/24/16 at 09:00 Clonidine (Catapres) 0.1 mg BID PO ; Start 11/23/16 at 21:00 Thierno Mcgowan DO Nov 23, 2016 15:08
[2016-11-23] MEDS: ATORVASTATIN 20 MG TAB PO SCH (20:40)
[2016-11-24] VITALS (12 sets, daily range): BP systolic 105–184; BP diastolic 56–96; PULSE 68–146; RESP 14–20
[2016-11-24] MEDS: hydrALAzine 20 MG INJ IV PRN (00:05)
[2016-11-24] MEDS: PANTOPRAZOLE (EC) 40 MG TAB PO SCH (05:58)
[2016-11-24] MEDS: DILTIAZEM (CD) 180 MG CAP PO SCH (08:42)
[2016-11-24] MEDS: FINASTERIDE 5 MG TAB PO SCH (08:43)
[2016-11-24] MEDS: TRIAMCINOLONE ACET 0.1% 15 GM CR TOP SCH (08:43)
[2016-11-24] MEDS: APIXABAN 5 MG TABLET PO SCH (08:43)
--- NOTE | 2016-11-24 08:48 | PDOCDIS ---
Discharge Instructions DIAGNOSIS Discharge Diagnosis: Hypertensive urgency CONDITION Patient Condition: Good HOME CARE INSTRUCTIONS: Diet Instructions: Low Fat /CholesterolSpecial Diet: low cholesterol,low fat ACTIVITY: Activity Restrictions: Slowly Increase Activity FOLLOW UP/APPOINTMENTS Appointments Dr. Thierno Mcgowan in the next week; PCP in the next week. CHATA GREENE M.D. Nov 24, 2016 08:47
[2016-11-24] MEDS ORDERED: AMLODIPINE 5 MG TAB PO SCH (09:00)
--- NOTE | 2016-11-24 10:24 | PN ---
Date/Time of Note Date/Time of Note DATE: 11/24/16 TIME: 10:23 Assessment/Plan VTE Prophylaxis VTE Prophylaxis Intervention: SCD's Lines/Catheters IV Catheter Type (from Nrsg): Saline Lock Urinary Cath still in place: No Assessment/Plan Assessment/Plan Atrial fibrillation rapid ventricular rates, currently sinus Preserved ejection fraction Mitral regurgitation Hypertension Abnormal renal function Possible clonidine withdrawal -Patient remains in sinus rhythm. Having "shaking" symptoms and tremors. As per family, this does happen to the patient and usually takes an extra dose of his medication, which they think is clonidine. Possible symptoms of clonidine withdrawal. Would restart clonidine, continue Cardizem to maintain in sinus rhythm. Continue anticoagulation if no contraindication -cardizme and dig regimen for HR control -add amiodarone to keep in nsr d/c planning later afternoon ok if sstill nsr or rate controled afib Subjective 24 Hr Interval Summary Free Text/Dictation the patient with afib last night and this am back to nsr Exam/Review of Systems Vital Signs Vitals Vital Signs Date Time Temp Pulse Resp B/P Pulse Ox O2 Delivery O2 Flow Rate FiO2 11/24/16 09:12 82 11/24/16 07:30 98.2 16 133/90 95 Room Air Intake and Output 11/23/16 11/23/16 11/24/16 14:59 22:59 06:59 Intake Total 1000 ml 400 ml Output Total 250 ml Balance -250 ml 1000 ml 400 ml Results Result Diagram: 11/23/16 0545 11/23/16 0545 Medications Medications Current Medications Lorazepam (Ativan) 0.5 mg Q6H PRN IV ANXIETY; Start 11/22/16 at 12:00 Ondansetron HCl (Zofran Inj) 4 mg Q6H PRN IV NAUSEA AND/OR VOMITING; Start at 12:00 Acetaminophen (Tylenol Tab) 650 mg Q6H PRN PO PAIN LEVEL 1-3 OR FEVER Last administered on 11/24/16t 05:58; Admin Dose 650 MG; Start 11/22/16 at 12:00 Acetaminophen/ Hydrocodone Bitart ([place] (5/325)) 1 tab Q6H PRN PO PAIN LEVEL 4 -6; Start 11/22/16 at 12:00 Acetaminophen/ Hydrocodone Bitart ([place] (5/325)) 2 tab Q6H PRN PO PAIN LEVEL 7 -10; Start 11/22/16 at 12:00 Morphine Sulfate (morphine) 2 mg Q4H PRN IV PAIN LEVEL 7-10; Start 11/22/16 at 12:00 Docusate Sodium (Colace) 100 mg Q12H PRN PO CONSTIPATION; Start 11/22/16 at 12: 00 Magnesium Hydroxide (Milk Of Mag) 30 ml DAILY PRN PO CONSTIPATION; Start at 12:00 Bisacodyl (Dulcolax Supp) 10 mg DAILY PRN [place] CONSTIPATION; Start 11/22/16 at 12 :00 Pantoprazole (Protonix Tab) 40 mg DAILY@06 PO Last administered on 11/24/16 05 :58; Admin Dose 40 MG; Start 11/23/16 at 06:00 Apixaban (Eliquis) 5 mg BID PO Last administered on 11/24/16 08:43; Admin Dose 5 MG; Start 11/22/16 at 21:00 Atorvastatin Calcium (Lipitor) 20 mg HS PO Last administered on 11/23/16 20:40 ; Admin Dose 20 MG; Start 11/22/16 at 21:00 Finasteride (Proscar) 5 mg DAILY PO Last administered on 11/24/16 08:43; Admin Dose 5 MG; Start 11/23/16 at 09:00 Lorazepam (Ativan) 0.25 mg HS PRN PO SLEEP Last administered on 11/24/16 00:06 ; Admin Dose 0.25 MG; Start 11/22/16 at 18:00 Meclizine HCl (Antivert) 25 mg DAILY PRN PO DIZZINESS; Start 11/22/16 at 18:00 Triamcinolone Acetonide (Kenalog 0.1% Cr) 1 applic BID TOP Last administered on 11/24/16 08:43; Admin Dose 1 APPLIC; Start 11/22/16 at 21:00 Hydralazine HCl (Apresoline) 10 mg Q8H PRN IV ELEVATED BLOOD PRESSURE Last administered on 11/24/16 00:05; Admin Dose 10 MG; Start 11/22/16 at 18:00 Clonidine (Catapres) 0.1 mg Q8H PRN PO ELEVATED BLOOD PRESSURE Last administered on 11/24/16 00:06; Admin Dose 0.1 MG; Start 11/23/16 at 14:00 Clonidine (Catapres) 0.1 mg BID PO Last administered on 11/24/16t 08:43; Admin Dose 0.1 MG; Start 11/23/16 at 21:00 Digoxin (Digoxin) 250 mcg Q4H IV ; Start 11/24/16 at 10:00; Stop 11/24/16 at 18: 01 Diltiazem HCl (Cardizem) 60 mg QID PO ; Start 11/24/16 at 17:00 NOLVIA COLLIER MD Nov 24, 2016 10:24
[2016-11-24] MEDS: DIGOXIN 500 MCG INJ IV SCH ×3 (10:30→17:35)
[2016-11-24] MEDS ORDERED: DILT60TA29 PO (15:47)
[2016-11-24] MEDS ORDERED: DIGO125T6 PO (15:47)
[2016-11-24] MEDS ORDERED: APIX5TAB PO (15:47)
[2016-11-24] MEDS ORDERED: AMIO200T2 PO (15:47)
[2016-11-24] MEDS ORDERED: CLON-379 PO (15:47)
--- NOTE | 2016-11-24 16:08 | DS ---
Date/Time of Note Date/Time of Note DATE: 11/24/16 TIME: 15:49 Discharge Summary Admission/Discharge Info Admit Date/Time Nov 22, 2016 at 11:28 Discharge Date/Time Nov 24, 2016 Final Diagnosis Atrial fibrillation, with rapid ventricular response and hypertensive urgency, possible clonidine withdrawal, bilat hydronephrosis on ultrasound. Patient Condition: Good Consults Cardiology (Thierno Mcgowan DO, Nolvia Collier MD) Procedures Echocardiogram Renal ultrasound Hx of Present Illness 86-year-old man with a history of hypertension, hyperlipidemia and benign prostatic hypertrophy, recently diagnosed also with possible vertigo on meclizine. He presented two days ago to the [facility] emergency department with palpitations, generalized weakness, dizziness, and mild shortness of breath. He was having those symptoms for the previous 48 hours. He went to urgent care first, where he was found to be in atrial fibrillation with no previous history , and was then redirected to the emergency department. ALLERGIES: NO KNOWN ALLERGIES. PAST MEDICAL HISTORY: 1. Hypertension. Of note, the patient has been on clonidine as an outpatient for blood pressure control. 2. Hyperlipidemia. 3. Benign prostatic hypertrophy. 4. Possibly benign positional vertigo. PAST SURGICAL HISTORY: None. SOCIAL HISTORY: The patient denies any history of alcohol or tobacco use. He lives with his son and may be exposed to secondhand smoking as the son is a smoker. Hospital Course In the emergency department, he was in atrial fibrillation with heart rate in the 150s to 160s. After 2 doses of Cardizem 10 mg IV, his heart rate became controlled in 80s. He actually converted to sinus rhythm, with resolution of his symptoms. He denied any chest pain, nausea or vomiting. He was placed under telemetry observation overnight,evaluated by Dr. Mcgowan, and started on Cardizem CD 160mg daily along with Eliquis 5mg PO BID for stroke prophylaxis. Lab studies showed white blood cell count of 4.9, hemoglobin 13.7, hematocrit 39.5, platelet count of 118. Chemistry with a sodium of 144, potassium 4.0, chloride 109, bicarbonate 21, BUN 20, creatinine 1.25, glucose 131, calcium 9.0 , magnesium 2.0, troponin 0.020, TSH 1.14, free T4 0.78. Second set of troponin negative with troponin less than 0.012. INR 1.22, PT 15.5, PTT 32.4. Initial EKG showed atrial fibrillation, but subsequently sinus rhythm with no acute ST or T-wave abnormalities. Portable chest x-ray showed no pleural effusion, no pneumothorax, mild elevation of the left hemidiaphragm, otherwise clear. Echocardiogram showed a preserved ejection fraction with mitral regurgitation. Hydralazine was added as a PRN IV medication for excessive systolic hypertension. His elevated creatinine on admission was consistent with a CKD3, which was unchanged yesterday on repeat chemistry panel. He had good urine output. Due to his benign prostatic hypertrophy, he resumed finasteride. Fasting lipids yesterday morning showed triglycerides of 141, and low total cholesterol of 111. Renal ultrasound showed bilateral hydronephrosis, possibly secondary to his BPH. At 2345h last night he converted back into atrial fibrillation, with sustained heart rates in the 130s, and as high as 160. This morning his rate dropped into the 80s after receiving the Cardizem. Dr. Collier consulted saw the patient for cardiology, and recommended loading him with digoxin 0.25mg IV. He received two doses at a four-hour interval. The patient then converted again into sinus rhythm, with good control of both his blood pressure and pulse. We agreed to start him on amiodarone 400mg PO BID, digoxin 0.125 mg PO daily beginning tomorrow, and to continue the Eliquis for stroke prophylaxis. Clonidine dose was decreased to 0.1mg PO BID. GENERAL: He was serious, conversant, and in no distress. Sinus rhythm on telemetry this afternoon. HEENT: Pupils are equally round and reactive to light. Extraocular muscles are intact. Anicteric sclerae. NECK: No JVD, no thyromegaly. HEART: Regular rhythm, normal rate. No murmur. LUNGS: Clear to auscultation bilaterally. ABDOMEN: Soft, non-tender, non-distended. Bowel sounds are present. EXTREMITIES: No edema, clubbing or cyanosis currently. NEUROLOGIC: Alert, oriented, cranial nerves intact, motor 5/5 in all extremities, toes downgoing. Home Meds Active Scripts Digoxin* (Lanoxin*) 0.125 Mg Tablet, 0.125 MG PO DAILY for 30 Days, TAB Prov:CHATA GREENE. MZhen 11/24/16 Diltiazem Hcl* (Cardizem*) 60 Mg Tablet, 60 MG PO TID for 30 Days, TAB Prov:CHATA GREENE M.D. 11/24/16 Clonidine Hcl* (Clonidine Hcl*) 0.1 Mg Tab, 0.1 MG PO BID for 30 Days, TAB Prov:CHATA GREENE M.D. 11/24/16 Apixaban* (Eliquis*) 5 Mg Tablet, 5 MG PO BID for 30 Days, TAB Prov:CHATA GREENE M.D. 11/24/16 Amiodarone Hcl* (Amiodarone Hcl*) 200 Mg Tablet, 400 MG PO BID for 30 Days, TAB Prov:CHATA GREENE M.D. 11/24/16 Reported Medications Meclizine Hcl* (Meclizine Hcl*) 25 Mg Tablet, 25 MG PO DAILY Y for DIZZINESS, TAB 11/22/16 Triamcinolone Acetonide* (Kenalog*) 0.1%-15GM Cr, 1 APPLIC TOP BID, #1 TUB 11/22/16 Trazodone Hcl* (Trazodone Hcl*) 50 Mg Tablet, 25 MG PO DAILY, #30 TAB 11/22/16 Lorazepam* (Lorazepam*) 0.5 Mg Tablet, 0.25 MG PO HS Y for SLEEP, TAB 11/22/16 Dexlansoprazole (Dexilant) 60 Mg Cap., 60 MG PO DAILY, #30 CAP 11/22/16 Rosuvastatin Calcium* (Crestor*) 10 Mg Tablet, 10 MG PO, #30 TAB 11/22/16 Finasteride* (Finasteride*) 5 Mg Tablet, 5 MG PO DAILY, TAB 11/22/16 Discontinued Reported Medications Clonidine Hcl* (Clonidine Hcl*) 0.1 Mg Tab, 0.3 MG PO DAILY, TAB * DIRECTION SAY TAKE THREE TABLETS BY MOUTH DAILY 11/22/16 Follow-up Plan Thierno Mcgowan DO in the next week. PCP in the next week. Pending Labs None Copies To: CC: Thierno Mcgowan DO; RJ WILLAMS; NOLVIA COLLIER MD, JOHN P. M.D. Nov 24, 2016 16:02
[2016-11-24] MEDS ORDERED: DILTIAZEM 60 MG TAB PO SCH (17:00)
[2016-11-24] MEDS ORDERED: AMIODARONE 200 MG TAB PO SCH (21:00)
== END 2016-11-24 18:05 | disposition home or self-care (01) ==
LOC: E/R 09:41 → TEL 11:28
PROVIDERS: ADMIT Internal Medicine; ATTEND Internal Medicine
DX: I48.91 Unspecified atrial fibrillation (principal); I10 Essential (primary) hypertension; N40.0 Benign prostatic hyperplasia without lower urinary tract symptoms; K21.9 Gastro-esophageal reflux disease without esophagitis; I34.0 Nonrheumatic mitral (valve) insufficiency
CPT/HCPCS: 36415; 71010; 76775; 80048; 80053; 80061; 82550; 82553; 83735; 84439; 84443; 84484; 85025; 85610; 85730; 93005; 93306; 96361; 96372; 96374; 96375; 96376; 99291; G0378; J0360; J1160; J1644; J7030; J7040

== ENCOUNTER 2019-05-28 07:44 | Emergency (ER) | payer MEDICARE, OTHER ==
[~2019-05-28] VITALS: Ht 152.4 cm; Wt 66.1 kg
[~2019-05-28 07:44] MED LIST: AMIO200T4 PO; APIX2.5T PO; APIX5TAB PO; CLON-379 PO; DEXL60CA2 PO; DIGO125T93 PO; DILT60TA29 PO; FER325 PO; FINA5TAB4 PO; HYDR12.53 PO; LORA0.5T PO; MECL-77 PO; METO-319 PO; RSV10T PO; SOTA80TA PO; TRAZ-111 PO; TRIA15CR55 TOP
[2019-05-28 07:49] VITALS: Ht 152.4 cm; Wt 66.1 kg
[2019-05-28] MEDS ORDERED: DILTIAZEM 25 MG INJ IV ONE (08:00)
[2019-05-28 10:28] VITALS: BP 116/76; PULSE 90; RESP 20
== END 2019-05-28 10:30 | disposition home or self-care (01) ==
LOC: E/R 07:44
DX: I48.91 Unspecified atrial fibrillation (principal); I10 Essential (primary) hypertension; R40.2142 Coma scale, eyes open, spontaneous, at arrival to emergency department; R40.2362 Coma scale, best motor response, obeys commands, at arrival to emergency department; R40.2252 Coma scale, best verbal response, oriented, at arrival to emergency department; Z79.01 Long term (current) use of anticoagulants
CPT/HCPCS: 36415; 71045; 80053; 83690; 83880; 84484; 85025; 85610; 85730; 93005; 96374